=== PATIENT | female | born 1990 | race Caucasian/White ===

== ENCOUNTER 2018-05-06 12:15 | Emergency (ER) | payer SELFPAY ==
--- NOTE | 2018-05-06 14:19 | ER ---
Nurse's Notes [facility] Name: Latoya Bryson Age: 28 yrs Sex: Female : 1990 Arrival Date: 05/06/2018 Time: 12:21 Bed 24 Private MD: None, None Diagnosis: Pneumonia, unspecified organism;Urinary tract infection, site not specified;Otitis media, unspecified, right ear Presentation: 05/06 12:21 Presenting complaint: Patient states: Symptoms began last , today they are sg worsening, sore throat, patches noted per pt on back of throat, bilateral ear pain with drainage, pt reports fever on and off for 2 days now, N/V, reports dizziness. Transition of care: patient was not received from another setting of care. Onset of symptoms was May 06, 2018. Risk Assessment: Do you want to hurt yourself or someone else? Patient reports no desire to harm self or others. Initial Sepsis Screen: Does the patient meet any 2 criteria? No. Patient's initial sepsis screen is negative. Does the patient have a suspected source of infection? No. Patient's initial sepsis screen is negative. Care prior to arrival: None. 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 - Social history:: Smoking status: Patient uses tobacco products, denies chronic smoking, but will smoke occasionally. - Ebola Screening: : Patient negative for fever greater than or equal to 101.5 degrees Fahrenheit, and additional compatible Ebola Virus Disease symptoms Patient denies exposure to infectious person Patient denies travel to an Ebola-affected area in the 21 days before illness onset No symptoms or risks identified at this time. Screenin:23 Abuse screen: Denies threats or abuse. Denies injuries from another. Nutritional ed1 screening: No deficits noted. Tuberculosis screening: No symptoms or risk factors identified. Fall Risk None identified. Assessment: 14:23 General: Appears uncomfortable, Behavior is calm, cooperative. Pain: Complains of pain ed1 in throat and chest Pain does not radiate. Pain currently is 7 out of 10 on a pain scale. Quality of pain is described as burning, aching, Pain began 2-3 days ago. Is continuous. Neuro: Level of Consciousness is awake, alert, obeys commands, Oriented to person, place, time, situation. Cardiovascular: Heart tones S1 S2 present. Respiratory: Reports cough that is non-productive, persistent Airway is patent Respiratory effort is even, unlabored, Respiratory pattern is regular, symmetrical, Breath sounds with wheezes bilaterally. GI: No signs and/or symptoms were reported involving the gastrointestinal system. : No signs and/or symptoms were reported regarding the genitourinary system. EENT: Throat is reddened has enlarged tonsils bilaterally with gag reflex present. Derm: Skin is pink, warm \T\ dry. Musculoskeletal: Circulation, motion, and sensation intact. Vital Signs: 12:23 BP 135 / 98; Pulse 105; Resp 18; Pulse Ox 100% on R/A; Weight 90.72 kg; Height 5 ft. 7 sg in. (170.18 cm); Pain 7/10; 15:04 BP 136 / 71; Pulse 102; Resp 20; Pulse Ox 99% on R/A; mb3 12:23 Body Mass Index 31.32 (90.72 kg, 170.18 cm) sg ED Course: 12:21 Patient arrived in ED. sb2 12:21 None, None is Private Physician. sb2 12:23 Triage completed. sg 12:24 Arm band placed on. sg 12:38 Linn Haines [facility]C [facility]. snw 12:38 Alex Velasquez MD is Attending Physician. snw 13:56 Chest Pa And Lat (2 Views) XRAY In Process Unspecified. EDMS 14:02 Jayne Ortega LVN is Primary Nurse. ed1 14:23 Patient has correct armband on for positive identification. Bed in low position. Call ed1 light in reach. 15:05 No provider procedures requiring assistance completed. Patient did not have IV access mb3 during this emergency room visit. Administered Medications: 14:25 Drug: Albuterol 2.5 mg Route: Inhalation; ed1 14:25 Drug: Decadron - Dexamethasone 10 mg Route: IVP; Site: Other; ed1 15:04 Follow up: Response: No adverse reaction mb3 14:25 Drug: Tussionex Pennkinetic ER 5 ml Route: PO; ed1 15:04 Follow up: Response: No adverse reaction mb3 14:25 Drug: Zithromax 500 mg Route: PO; ed1 15:03 Follow up: Response: No adverse reaction mb3 14:45 Drug: Albuterol 2.5 mg Route: Inhalation; ed1 14:50 Drug: Albuterol 2.5 mg Route: Inhalation; ed1 15:04 Follow up: Response: No adverse reaction ed1 Outcome: 14:18 Discharge ordered by . delilah 15:05 Discharged to home ambulatory, with family. mb3 15:05 Condition: stable 15:05 Discharge instructions given to patient, family, Instructed on discharge instructions, follow up and referral plans. medication usage, Demonstrated understanding of instructions, follow-up care, medications, Prescriptions given X 3. 15:05 Patient left the ED. mb3 Addendum: 05/09/2018 08:59 Addendum: Culture Results: Positive urine culture. No further action required. Bacteria i w sensitive to prescribed antibiotic. Signatures: Dispatcher [employer] EDMS Rocky Perry, RN RN Linn Dobbins, SLEEPING BAG FILLER-C SLEEPING BAG FILLER-Csnw Lalitha Sy, RN Jayne Jauregui LVN EXEC. CREATIVE DIRECTOR ed1 Irma Romeo sb2 Meir Saenz RN RN mb3
[2018-05-06] MEDS ORDERED: AZITHROMYCIN 250 MG TAB ONE (14:20)
[2018-05-06] MEDS ORDERED: HYDROCODONE/CHLORPHEN 5 ML/OSYR ONE (14:20)
[2018-05-06] MEDS ORDERED: DEXAMETHASONE 10 MG/ML VIAL ONE (14:20)
[2018-05-06] MEDS ORDERED: ALBUTEROL 2.5 MG/3 ML NEB SOL ONE (14:20)
--- NOTE | 2018-05-06 14:20 | EDPHYS ---
Physician Documentation [facility] Name: Latoya Bryson Age: 28 yrs Sex: Female : 1990 Arrival Date: 05/06/2018 Time: 12:21 Bed 24 Private MD: None, None ED Physician Alex Velasquez HPI: 05/06 13:53 This 28 yrs old Female presents to ER via Ambulatory with complaints of snw Cough, Flu Symptoms. 13:53 The patient or guardian reports airway noise, cough, described as moderate, flu snw symptoms, hoarse voice. Onset: The symptoms/episode began/occurred suddenly, 3 day(s) ago, and became persistent. Severity of symptoms: At their worst the symptoms were moderate. Associated signs and symptoms: Pertinent positives: chest pain, fever, nausea, sore throat. The patient has not experienced similar symptoms in the past. It is unknown whether or not the patient has recently seen a physician. usually gets strep twice/year. 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 - Social history:: Smoking status: Patient uses tobacco products, denies chronic smoking, but will smoke occasionally. - Ebola Screening: : Patient negative for fever greater than or equal to 101.5 degrees Fahrenheit, and additional compatible Ebola Virus Disease symptoms Patient denies exposure to infectious person Patient denies travel to an Ebola-affected area in the 21 days before illness onset No symptoms or risks identified at this time. ROS: 13:51 Eyes: Negative for injury, pain, redness, and discharge, Neck: Negative for injury, snw pain, and swelling, Cardiovascular: Negative for chest pain, palpitations, and edema, Abdomen/GI: Negative for abdominal pain, nausea, vomiting, diarrhea, and constipation, Back: Negative for injury and pain, : Negative for injury, bleeding, discharge, and swelling, MS/Extremity: Negative for injury and deformity, Skin: Negative for injury, rash, and discoloration, Neuro: Negative for headache, weakness, numbness, tingling, and seizure. 13:51 Constitutional: Positive for body aches, malaise, poor PO intake. 13:51 ENT: Positive for ear pain, sore throat. 13:51 Respiratory: Positive for cough, pleurisy, of the anterior chest. Exam: 13:49 Head/Face: Normocephalic, atraumatic. Eyes: Pupils equal round and reactive to light, snw extra-ocular motions intact. Lids and lashes normal. Conjunctiva and sclera are non-icteric and not injected. Cornea within normal limits. Periorbital areas with no swelling, redness, or edema. Chest/axilla: Normal chest wall appearance and motion. Nontender with no deformity. No lesions are appreciated. Abdomen/GI: Soft, non-tender, with normal bowel sounds. No distension or tympany. No guarding or rebound. No evidence of tenderness throughout. Back: No spinal tenderness. No costovertebral tenderness. Full range of motion. Skin: Warm, dry with normal turgor. Normal color with no rashes, no lesions, and no evidence of cellulitis. MS/ Extremity: Pulses equal, no cyanosis. Neurovascular intact. Full, normal range of motion. Neuro: Awake and alert, GCS 15, oriented to person, place, time, and situation. Cranial nerves II-XII grossly intact. Motor strength 5/5 in all extremities. Sensory grossly intact. Cerebellar exam normal. Normal gait. Psych: Awake, alert, with orientation to person, place and time. Behavior, mood, and affect are within normal limits. 13:49 Constitutional: The patient appears alert, awake. 13:49 ENT: Ear canal(s): are normal, TM's: bulging, on the right, erythema, that is marked, on the right, Examination of the other ear shows no obvious abnormality, Nose: is normal, Mouth: is normal, Posterior pharynx: is normal, Voice: is normal. 13:49 Neck: C-spine: appears grossly normal, Thyroid: appears normal, Trachea: is midline with no obvious abnormalities, ROM/movement: is normal, Lymph nodes: lymphadenopathy is appreciated, anterior cervical nodes. 13:49 Cardiovascular: Rate: tachycardic, Rhythm: regular. 13:49 Respiratory: the patient does not display signs of respiratory distress, Respirations: no acute changes, Breath sounds: wheezing: expiratory that is moderate, is scattered, bronchitic cough. Vital Signs: 12:23 BP 135 / 98; Pulse 105; Resp 18; Pulse Ox 100% on R/A; Weight 90.72 kg; Height 5 ft. 7 sg in. (170.18 cm); Pain 7/10; 15:04 BP 136 / 71; Pulse 102; Resp 20; Pulse Ox 99% on R/A; mb3 12:23 Body Mass Index 31.32 (90.72 kg, 170.18 cm) sg MDM: 13:27 Patient medically screened. snw 16:53 Data reviewed: vital signs, nurses notes. Data interpreted: Pulse oximetry: on room air snw is 99 %. Interpretation: normal. Counseling: I had a detailed discussion with the patient and/or guardian regarding: the historical points, exam findings, and any diagnostic results supporting the discharge/admit diagnosis, the presence of at least one elevated blood pressure reading (>120/80) during this emergency department visit, lab results, radiology results, the need for outpatient follow up, to return to the emergency department if symptoms worsen or persist or if there are any questions or concerns that arise at home. Special discussion: I have referred the patient to see his PCP for further evaluation of high blood pressure. Based on the history and exam findings, there is no indication for further emergent testing or inpatient evaluation. I discussed with the patient/guardian the need to see the primary care provider for further evaluation of the symptoms. 05/06 13:27 Order name: Strep; Complete Time: 14:33 snw 05/06 13:27 Order name: Urine Culture snw 05/06 13:27 Order name: Urine Microscopic Only; Complete Time: 14:33 snw 05/06 14:19 Order name: Urine Dipstick--Ancillary (enter results); Complete Time: 14:27 em1 05/06 14:19 Order name: Urine --Ancillary (enter results); Complete Time: 14:27 em1 05/06 14:30 Order name: Throat Culture [facility] 05/06 13:27 Order name: Urine Test (obtain specimen); Complete Time: 14:14 snw 05/06 13:27 Order name: Urine Dipstick-Ancillary (obtain specimen); Complete Time: 14:14 snw 05/06 13:38 Order name: Chest Pa And Lat (2 Views) XRAY; Complete Time: 14:33 snw Administered Medications: 14:25 Drug: Albuterol 2.5 mg Route: Inhalation; ed1 14:25 Drug: Decadron - Dexamethasone 10 mg Route: IVP; Site: Other; ed1 15:04 Follow up: Response: No adverse reaction mb3 14:25 Drug: Tussionex Pennkinetic ER 5 ml Route: PO; ed1 15:04 Follow up: Response: No adverse reaction mb3 14:25 Drug: Zithromax 500 mg Route: PO; ed1 15:03 Follow up: Response: No adverse reaction mb3 14:45 Drug: Albuterol 2.5 mg Route: Inhalation; ed1 14:50 Drug: Albuterol 2.5 mg Route: Inhalation; ed1 15:04 Follow up: Response: No adverse reaction ed1 Disposition: 15:06 Co-signature as Attending Physician, Alex Velasquez MD. rn Disposition: 05/06/18 14:18 Discharged to Home. Impression: Pneumonia, unspecified organism, Urinary tract infection, site not specified, Otitis media, unspecified, right ear. - Condition is Stable. - Discharge Instructions: Otitis Media With Effusion, Pneumonia, Adult, Urinary Tract Infection, Hypertension, Rxnj-cx-Idor, Rehydration, Adult. - Prescriptions for Levaquin 500 mg Oral Tablet - take 1 tablet by ORAL route once daily for 10 days; 10 tablet. Tylenol- Codeine #3 300-30 mg Oral Tablet - take 2 tablets by ORAL route every 6 hours As needed; 20 tablet. Albuterol Sulfate 90 mcg/actuation - inhale 1-2 puff by INHALATION route every 4-6 hours; 1 Inhaler. - Work release form, Medication Reconciliation Form, Thank You Letter, Antibiotic Education, Prescription Opioid Use form. - Follow up: Private Physician; When: 2 - 3 days; Reason: Recheck today's complaints, Continuance of care, Re-evaluation by your physician. Follow up: Emergency Department; When: As needed; Reason: Worsening of condition. Signatures: Dispatcher [employer] EDMS Rocky Perry RN RN sg Linn Haines, JUICE BAR TEAM MEMBER-C JUICE BAR TEAM MEMBER-Csnw Alex Velasquez MD MD rn Jayne Ortega, SURVEY ASSOCIATE SURVEY ASSOCIATE ed1 Meir Saenz, RN RN mb3 Corrections: (The following items were deleted from the chart) 15:05 14:18 05/06/2018 14:18 Discharged to Home. Impression: Pneumonia, unspecified organism; mb3 Urinary tract infection, site not specified; Otitis media, unspecified, right ear. Condition is Stable. Forms are Medication Reconciliation Form, Thank You Letter, Antibiotic Education, Prescription Opioid Use. Follow up: Private Physician; When: 2 - 3 days; Reason: Recheck today's complaints, Continuance of care, Re-evaluation by your physician. Follow up: Emergency Department; When: As needed; Reason: Worsening of condition. snw
[2018-05-06 14:25] LABS: Urine Blood NEGATIVE (NEG); Urine Glucose NEGATIVE (NEG); Urine Protein NEGATIVE (NEG)
[2018-05-06 14:30] LABS: Urine Bacteria >50 /HPF (<20); Urine Culture Reflex Order NOT NEEDED; Urine RBC NONE SEEN /HPF (NONE SEEN)
--- NOTE | 2018-05-06 14:32 | RAD REPORT ---
EXAM DESCRIPTION: RAD - Chest Pa And Lat (2 Views) - 05/06/2018 1:58 pm CLINICAL HISTORY: Cough, flu-like symptoms COMPARISON: October 2013 TECHNIQUE: PA and lateral views of the chest were obtained. FINDINGS: The lungs are underinflated. No failure or volume overload. Perihilar markings are mildly prominent, increased slightly over prior study. On the lateral view there is atelectasis or minimal i nfiltrate in the anterior left lower lobe abutting the fissure. Heart size is normal and central va sculature is within normal limits. No pleural effusion or pneumothorax seen. No acute bony finding noted. No aortic abnormality. IMPRESSION: Small pneumonia versus atelectasis in the anterior base left lower lobe.
== END 2018-05-06 15:05 | disposition home or self-care (01) ==
LOC: ER 12:15
DX: J18.9 Pneumonia, unspecified organism (principal); N39.0 Urinary tract infection, site not specified; H66.91 Otitis media, unspecified, right ear; F17.200 Nicotine dependence, unspecified, uncomplicated; Z88.0 Allergy status to penicillin
CPT/HCPCS: 71046; 81003; 81015; 81025; 87070; 87077; 87081; 87086; 87088; 87186; 96374; 99284; J1100

== ENCOUNTER 2019-09-12 09:36 | Emergency (ER) | payer SELFPAY ==
--- OUTSIDE RECORDS SUMMARY | 2019-09-12 09:38 | XMS REPORT | Continuity of Care Document ---
:1990 Author Organization [facility] Address [address] [place] [address] Phone Unavailable Care Team Providers Name Role Phone PHYSICIAN, NO Primary Care Physician Unavailable Insurance Providers Guarantor Margo Bryson Address [address] [place] [phone] Email NONE Payer Self Pay Insurance Subscriber's Name Margo Bryson Relationship Self / Same As Patient Group Number NA Group Name NA Advance Directives Directive Response Recorded Date/Time Name of Surrogate/Decision Maker NA 04/26/19 12:02pm Patient/Family Given Education Material R/T Y - KR...04/26/19 04/26/19 12: 02pm Directives? Chief Complaint and Reason for Visit Chief Complaint Skin Rash/Abscess/Wound Reason for Visit Cellulitis Problems Active ProblemsNo active problem information available. Past Problems Medical Problem Onset Date Status Cellulitis Unknown Acute Medications No medication information available. Social History Smoking Status Start Date Stop Date Current every day smoker Hospital Discharge Instructions No hospital discharge instruction information available. Plan of Care Discharge Date 04/26/19 1:04pm Instructions/Education Provided Cellulitis, Adult, Qcbq-or-Oxen Forms Provided Portal Welcome Letter Prescriptions See Medication Section Referrals NO PHYSICIAN Additional Instructions/Education rx clindamycin 300, rec reeval by pvt md or er in 3d Functional Status No functional status information available. Allergies, Adverse Reactions, Alerts Allergen Type Severity Reaction Status Last Updated Penicillin G ([id number]) Allergy Unknown Active 04/26/19 Immunizations No immunization information available. Vital Signs Acute Vital Signs Vital Response Date/Time Blood Pressure 118/82 mm Hg 04/26/2019 1:04pm Pulse Pulse Rate (adult) 98 beats per minute (60 - 100) 04/26/2019 1:04pm Respiratory Rate 18 breaths per minute (10 - 24) 04/26/2019 1:04pm Temperature Source Oral 04/26/2019 1:04pm Height 5 ft 7 in 04/26/2019 11:25am Weight 200 lb 04/26/2019 11:25am Body Mass Index 31.3 kg/m^2 04/26/2019 11:25am Results No relevant diagnostic test, laboratory data and/or discharge summary information available. Procedures No procedure information available. Encounters Encounter Location Arrival/Admit Date Discharge/Depart Date Attending Provider Departed [place] 04/26/19 11:21am 04/26/19 1:04pm [facility] GILBERTO Shah MD [facility] Recent Diagnosis
--- NOTE | 2019-09-12 11:35 | ER ---
Nurse's Notes [facility] Name: Latoya Bryson Age: 29 yrs Sex: Female : 1990 Arrival Date: 09/12/2019 Time: 09:38 Bed 10 Private MD: Diagnosis: Acute upper respiratory infection, unspecified Presentation: 09/12 09:50 Presenting complaint: Patient states: cough since Thursday, chest congestion, + phlegm, iw +chills. Transition of care: patient was not received from another setting of care. Onset of symptoms was September 09, 2019. Risk Assessment: Do you want to hurt yourself or someone else? Patient reports no desire to harm self or others. Initial Sepsis Screen: Does the patient meet any 2 criteria? No. Patient's initial sepsis screen is negative. Does the patient have a suspected source of infection? No. Patient's initial sepsis screen is negative. Care prior to arrival: None. 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 - Social history:: Smoking status: Patient uses tobacco products, smokes one-half pack cigarettes per day. - Ebola Screening: : Patient negative for fever greater than or equal to 101.5 degrees Fahrenheit, and additional compatible Ebola Virus Disease symptoms Patient denies exposure to infectious person Patient denies travel to an Ebola-affected area in the 21 days before illness onset No symptoms or risks identified at this time. Screenin:01 Abuse screen: Denies threats or abuse. Denies injuries from another. Nutritional iw screening: No deficits noted. Tuberculosis screening: No symptoms or risk factors identified. Fall Risk None identified. Assessment: 10:00 General: Appears in no apparent distress. Behavior is calm, cooperative. Pain: iw Complains of pain in chest. Neuro: Level of Consciousness is awake, alert, obeys commands, Oriented to person, place, time, situation, Moves all extremities. Full function. Cardiovascular: Patient's skin is warm and dry. Respiratory: Reports cough that is productive, Airway is patent Respiratory effort is even, unlabored, Respiratory pattern is regular, symmetrical. Derm: Skin is intact, is healthy with good turgor. Musculoskeletal: Range of motion: intact in all extremities. 11:01 Reassessment: Patient appears in no apparent distress at this time. Patient and/or iw family updated on plan of care and expected duration. Pain level reassessed. Patient is alert, oriented x 3, equal unlabored respirations, skin warm/dry/pink. Vital Signs: 09:52 BP 130 / 92; Pulse 89; Resp 16; Temp 98.6; Pulse Ox 97% on R/A; Weight 88 kg; Height 5 iw ft. 7 in. (170.18 cm); Pain 6/10; 09:52 Body Mass Index 30.38 (88.00 kg, 170.18 cm) iw ED Course: 09:38 Patient arrived in ED. rg4 09:46 Libby Dc FNP-C is [facility]. kb 09:46 Alex Velasquez MD is Attending Physician. kb 09:51 Triage completed. iw 09:52 Arm band placed on. iw 10:00 Patient has correct armband on for positive identification. iw 10:05 Lalitha Sy, RN is Primary Nurse. iw 10:14 Flu and/or RSV swab sent to lab. iw 11:34 No provider procedures requiring assistance completed. Patient did not have IV access iw during this emergency room visit. Administered Medications: No medications were administered Outcome: 11:35 Discharge ordered by MD. kb 11:38 Discharged to home ambulatory. iw 11:38 Condition: good 11:38 Discharge instructions given to patient, Instructed on discharge instructions, follow up and referral plans. Demonstrated understanding of instructions, follow-up care. 11:39 Patient left the ED. iw Signatures: Libby Dc FNP-C FNP-Lalitha Raymond, RN RN Mia Stewart rg4
--- NOTE | 2019-09-12 11:35 | EDPHYS ---
Physician Documentation [facility] Name: Latoya Bryson Age: 29 yrs Sex: Female : 1990 Arrival Date: 09/12/2019 Time: 09:38 Bed 10 Private MD: ED Physician Alex Velasquez HPI: 09/12 11:26 This 29 yrs old Female presents to ER via Ambulatory with complaints of Cough.kb 11:26 The patient or guardian reports cough, that is intermittent, described as mild, with no kb sputum, flu symptoms, arthralgias, low-grade fever. Onset: The symptoms/episode began/occurred 4 day(s) ago. Severity of symptoms: At their worst the symptoms were moderate, in the emergency department the symptoms are unchanged. Modifying factors: The symptoms are alleviated by nothing, the symptoms are aggravated by nothing. Associated signs and symptoms: Pertinent positives: rhinorrhea, sore throat. The patient has not experienced similar symptoms in the past. The patient has not recently seen a physician. 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 - Social history:: Smoking status: Patient uses tobacco products, smokes one-half pack cigarettes per day. - Ebola Screening: : Patient negative for fever greater than or equal to 101.5 degrees Fahrenheit, and additional compatible Ebola Virus Disease symptoms Patient denies exposure to infectious person Patient denies travel to an Ebola-affected area in the 21 days before illness onset No symptoms or risks identified at this time. ROS: 11:27 Neck: Negative for injury, pain, and swelling, Cardiovascular: Negative for chest pain, kb palpitations, and edema, Abdomen/GI: Negative for abdominal pain, nausea, vomiting, diarrhea, and constipation, Back: Negative for injury and pain, : Negative for injury, bleeding, discharge, and swelling, MS/Extremity: Negative for injury and deformity, Skin: Negative for injury, rash, and discoloration, Neuro: Negative for headache, weakness, numbness, tingling, and seizure. 11:27 Constitutional: Positive for body aches, chills, malaise. 11:27 ENT: Positive for rhinorrhea, sore throat. 11:27 Respiratory: Positive for cough, Negative for dyspnea on exertion, hemoptysis, orthopnea, pleurisy, shortness of breath, sputum production, wheezing. Exam: 11:27 Constitutional: This is a well developed, well nourished patient who is awake, alert, kb and in no acute distress. Head/Face: Normocephalic, atraumatic. ENT: Nares patent. No nasal discharge, no septal abnormalities noted. Tympanic membranes are normal and external auditory canals are clear. Oropharynx with no redness, swelling, or masses, exudates, or evidence of obstruction, uvula midline. Mucous membranes moist. Neck: Trachea midline, no thyromegaly or masses palpated, and no cervical lymphadenopathy. Supple, full range of motion without nuchal rigidity, or vertebral point tenderness. No Meningismus. Chest/axilla: Normal chest wall appearance and motion. Nontender with no deformity. No lesions are appreciated. Cardiovascular: Regular rate and rhythm with a normal S1 and S2. No gallops, murmurs, or rubs. Normal PMI, no JVD. No pulse deficits. Respiratory: Lungs have equal breath sounds bilaterally, clear to auscultation and percussion. No rales, rhonchi or wheezes noted. No increased work of breathing, no retractions or nasal flaring. Abdomen/GI: Soft, non-tender, with normal bowel sounds. No distension or tympany. No guarding or rebound. No evidence of tenderness throughout. Back: No spinal tenderness. No costovertebral tenderness. Full range of motion. Skin: Warm, dry with normal turgor. Normal color with no rashes, no lesions, and no evidence of cellulitis. MS/ Extremity: Pulses equal, no cyanosis. Neurovascular intact. Full, normal range of motion. Neuro: Awake and alert, GCS 15, oriented to person, place, time, and situation. Cranial nerves II-XII grossly intact. Motor strength 5/5 in all extremities. Sensory grossly intact. Cerebellar exam normal. Normal gait. Vital Signs: 09:52 BP 130 / 92; Pulse 89; Resp 16; Temp 98.6; Pulse Ox 97% on R/A; Weight 88 kg; Height 5 iw ft. 7 in. (170.18 cm); Pain 6/10; 09:52 Body Mass Index 30.38 (88.00 kg, 170.18 cm) iw MDM: 09:53 Patient medically screened. kb 11:27 Data reviewed: vital signs, nurses notes. Data interpreted: Pulse oximetry: on room air kb is 97 %. Interpretation: normal. 11:34 Counseling: I had a detailed discussion with the patient and/or guardian regarding: the kb historical points, exam findings, and any diagnostic results supporting the discharge/admit diagnosis, lab results, the need for outpatient follow up, a family practitioner, to return to the emergency department if symptoms worsen or persist or if there are any questions or concerns that arise at home. 09/12 09:56 Order name: Flu; Complete Time: 10:40 kb 09/12 10:44 Order name: Strep; Complete Time: 11:34 kb 09/12 11:38 Order name: Throat Culture EDMS Administered Medications: No medications were administered Disposition: 15:57 Co-signature as Attending Physician, Alex Velasquez MD. rn Disposition: 09/12/19 11:35 Discharged to Home. Impression: Acute upper respiratory infection, unspecified. - Condition is Stable. - Discharge Instructions: Upper Respiratory Infection, Adult, [id number]-[id number], Viral Respiratory Infection, Tspg-Wm-Ocut. - Work release form, Medication Reconciliation Form, Thank You Letter, Antibiotic Education, Prescription Opioid Use form. - Follow up: Emergency Department; When: As needed; Reason: Worsening of condition. Follow up: Private Physician; When: 2 - 3 days; Reason: Recheck today's complaints, Continuance of care, Re-evaluation by your physician. Signatures: Dispatcher [employer] EDLibby Bliss, MARY ASTUDILLO-Lalitha Raymond RN Alex Sinclair MD MD cv rn: (The following items were deleted from the chart) 11:39 11:35 09/12/2019 11:35 Discharged to Home. Impression: Acute upper respiratory iw infection, unspecified. Condition is Stable. Forms are Medication Reconciliation Form, Thank You Letter, Antibiotic Education, Prescription Opioid Use. Follow up: Emergency Department; When: As needed; Reason: Worsening of condition. Follow up: Private Physician; When: 2 - 3 days; Reason: Recheck today's complaints, Continuance of care, Re-evaluation by your physician. kb
[2019-09-12 11:45] VITALS: BP 130/92; TEMP 98.6; O2SAT 97
== END 2019-09-12 11:39 | disposition home or self-care (01) ==
LOC: ER 09:36
DX: J06.9 Acute upper respiratory infection, unspecified (principal); Z88.0 Allergy status to penicillin; F17.210 Nicotine dependence, cigarettes, uncomplicated
CPT/HCPCS: 87070; 87081; 87804; 99283

== ENCOUNTER 2021-09-23 18:24 | Emergency (ER) | payer SELFPAY ==
[2021-09-23 19:50] LABS: Absolute Lymphocytes (CBC) 2.7 K/uL (0.7-4.9); Basophils % 0.6 % (0-1.3); Lymphocytes % 26.4 % (15.3-44.8); MPV 8.3 fL (7.6-11.3); RBC Red Blood Cell Count 4.09 M/uL (3.86-4.86)
[2021-09-23 20:26] LABS: ALT/SGPT 33 U/L (12-78); AST/SGOT 15 U/L (15-37); Albumin 3.6 g/dL (3.4-5.0); Alkaline Phosphatase 103 U/L (45-117); BUN Blood Urea Nitrogen 16 mg/dL (7-18); Bicarbonate 29 mmol/L (21-32); Bilirubin Direct < 0.1 mg/dL (0-0.2); Bilirubin Total 0.3 mg/dL (0.2-1.0); Glucose Level 98 mg/dL (74-106); Lipase 106 U/L (73-393); Potassium 3.9 mmol/L (3.5-5.1); Protein, Total 7.4 g/dL (6.4-8.2); Sodium Level 139 mmol/L (136-145)
[2021-09-23 21:38] LABS: Urine Blood Negative (Negative); Urine Glucose Negative (Negative); Urine Protein Negative (Negative); Urine Specific Gravity >=1.030 (1.005-1.030); Urine pH 6.5 (5.0-7.0)
[2021-09-23] MEDS ORDERED: ONDANSETRON 4 MG/2 ML VIAL ONE (23:07)
--- NOTE | 2021-09-23 23:12 | EDPHYS ---
Physician Documentation [facility] Name: Latoya Bryson Age: 31 yrs Sex: Female : 1990 Arrival Date: 09/23/2021 Time: 18:26 Bed 11 Private MD: GABRIELLE Physician Rex Simmons HPI: 09/23 22:25 This 31 yrs old Female presents to ER via Ambulatory with complaints of Upper Abd Pain, jr8 Nausea/Vomiting. 22:25 This is a 31-year-old female that presented to the emergency room with a history of jr8 cholecystectomy complaining of upper abdominal pain for the past couple weeks with associated nausea and vomiting. Patient denies any diarrhea, fevers or any other symptoms at this time. Patient stated that she had her cholecystectomy about 10 years ago and has been fine since then. Started to have pain which she describes as an intense gnawing feeling in her epigastric region that is unrelenting but often times feels better with the eating.. 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 - Social history:: Smoking status: Patient denies any tobacco usage or history of. Patient uses alcohol, occasionally. Patient/guardian denies using street drugs. ROS: 22:25 Eyes: Negative for injury, pain, redness, and discharge, ENT: Negative for injury, jr8 pain, and discharge, Neck: Negative for injury, pain, and swelling, Cardiovascular: Negative for chest pain, palpitations, and edema, Respiratory: Negative for shortness of breath, cough, wheezing, and pleuritic chest pain, Back: Negative for injury and pain, MS/Extremity: Negative for injury and deformity, Skin: Negative for injury, rash, and discoloration, Neuro: Negative for headache, weakness, numbness, tingling, and seizure. 22:25 Abdomen/GI: Positive for abdominal pain, nausea and vomiting, Negative for diarrhea, abdominal distension, hematemesis, black/tarry stool, rectal pain, rectal bleeding, bowel incontinence, flatulence. Exam: 22:25 Constitutional: This is a well developed, well nourished patient who is awake, alert, jr8 and in no acute distress. Cardiovascular: Regular rate and rhythm with a normal S1 and S2. No gallops, murmurs, or rubs. Normal PMI, no JVD. No pulse deficits. Respiratory: Lungs have equal breath sounds bilaterally, clear to auscultation and percussion. No rales, rhonchi or wheezes noted. No increased work of breathing, no retractions or nasal flaring. Back: No spinal tenderness. No costovertebral tenderness. Full range of motion. Skin: Warm, dry with normal turgor. Normal color with no rashes, no lesions, and no evidence of cellulitis. MS/ Extremity: Pulses equal, no cyanosis. Neurovascular intact. Full, normal range of motion. Neuro: Awake and alert, GCS 15, oriented to person, place, time, and situation. Cranial nerves II-XII grossly intact. Motor strength 5/5 in all extremities. Sensory grossly intact. 22:25 Abdomen/GI: Inspection: abdomen appears normal, Bowel sounds: active, all quadrants, Palpation: soft, in all quadrants, mild abdominal tenderness, in the epigastric area, mass, is not appreciated, rebound tenderness, is not appreciated, voluntary guarding, is not appreciated, involuntary guarding, is not appreciated, no appreciated organomegaly, Indicators: McBurney's point is not tender, Cummins's sign is negative, Rovsing's sign is negative, Liver: tenderness, is not appreciated. Vital Signs: 19:35 BP 140 / 105; Pulse 84; Resp 18; Temp 98.1(TE); Pulse Ox 100% on R/A; Weight 94.35 kg; ld1 Height 5 ft. 7 in. (170.18 cm); Pain 5/10; 21:50 BP 163 / 100; Pulse 78; Resp 16; Pulse Ox 100% on R/A; ds4 19:35 Body Mass Index 32.58 (94.35 kg, 170.18 cm) ld1 MDM: 21:29 Patient medically screened. jr8 23:10 Differential diagnosis: gastritis, gastroesophageal reflux disease, Irritable bowel jr8 syndrome, non-specific abd pain, pancreatitis, Peptic Ulcer Disease. Data reviewed: vital signs, nurses notes, lab test result(s), radiologic studies, CT scan. Data interpreted: Pulse oximetry: on room air is 100 %. Interpretation: normal. Counseling: I had a detailed discussion with the patient and/or guardian regarding: the historical points, exam findings, and any diagnostic results supporting the discharge/admit diagnosis, lab results, radiology results, the need for outpatient follow up, a magistrate assistant, to return to the emergency department if symptoms worsen or persist or if there are any questions or concerns that arise at home. Special discussion: Based on the patient's Hx, exam, and Dx evaluation, there is no indication for emergent surgery or inpatient Tx. It is understood by the patient/guardian that if the Sx's persist or worsen they need to return immediately for re-evaluation. 09/23 19:34 Order name: Basic Metabolic Panel; Complete Time: 20:51 ld1 09/23 19:34 Order name: CBC with Diff; Complete Time: 20:51 ld1 09/23 19:34 Order name: Hepatic Function; Complete Time: 20:51 ld1 09/23 19:34 Order name: Lipase; Complete Time: 20:51 ld1 09/23 21:37 Order name: Urine Dipstick-Ancillary; Complete Time: 21:49 EDMS 09/23 21:39 Order name: Urine --Ancillary (enter results); Complete Time: 21:49 cs9 09/23 19:34 Order name: IV Saline Lock; Complete Time: 21:48 ld1 09/23 19:34 Order name: Labs collected and sent; Complete Time: 21:48 ld1 09/23 21:45 Order name: CT Abd/Pelvis - IV Contrast Only jr8 Administered Medications: 23:10 Drug: Zofran (Ondansetron) 4 mg Route: IVP; Site: right antecubital; bb Disposition Summary: 09/23/21 23:11 Discharge Ordered Location: Home jr Condition: Stable jr8 Diagnosis - Upper abdominal pain, unspecified jr8 - Nausea with vomiting, unspecified jr8 Followup: jr8 - With: Bradley Farley MD - When: 2 - 3 days - Reason: Recheck today's complaints, Continuance of care, Re-evaluation by your physician Discharge Instructions: - Discharge Summary Sheet jr8 - Abdominal Pain, Adult jr8 - Nausea and Vomiting, Adult, [id number] jr8 Forms: - Medication Reconciliation Form jr8 - Thank You Letter jr8 - Antibiotic Education jr8 - Prescription Opioid Use jr8 Prescriptions: - omeprazole 40 mg Oral capsule,delayed release(DR/EC) - take 1 capsule by ORAL route once daily before a meal; 30 capsule; Refills: 0, jr8 Product Selection Permitted - Zofran 4 mg Oral Tablet - take 1 tablet by ORAL route every 12 hours As needed; 20 tablet; Refills: 0, jr8 Product Selection Permitted - dicyclomine 20 mg Oral Tablet - take 1 tablet by ORAL route 3 times per day As needed; 20 tablet; Refills: 0, jr8 Product Selection Permitted Addendum: 09/25/2021 09:19 Co-signature as Attending Physician, Rex Simmons MD I agree with the assessment and c ang[place] plan of care. Signatures: Dispatcher [employer] [facility] Rex Simmons MD MD cha Ballard, Brenda, RN RN bb Peter Allred PA PA jr8 Chanel Britt RN RN ld1 Corrections: (The following items were deleted from the chart) 09/23 21:45 20:52 Abdomen Limited+[id number] ordered. [facility]
--- NOTE | 2021-09-23 23:12 | ER ---
Nurse's Notes [facility] Name: Latoya Bryson Age: 31 yrs Sex: Female : 1990 Arrival Date: 09/23/2021 Time: 18:26 Bed 11 Private MD: Diagnosis: Upper abdominal pain, unspecified;Nausea with vomiting, unspecified Presentation: 09/23 19:35 Chief complaint: Patient states: I do not have my gallbladder but I feel like I am ld1 having gallbladder attacks. It has been going on for about 2 weeks, I try to ignore the pain because I can't afford going to the hospital. Last night at 0400 I woke up throwing up, extremely nauseous. RUQ pain 8/. Coronavirus screen: At this time, the client does not indicate any symptoms associated with coronavirus-19. Ebola Screen: No symptoms or risks identified at this time. Initial Sepsis Screen: Does the patient meet any 2 criteria? No. Patient's initial sepsis screen is negative. Does the patient have a suspected source of infection? No. Patient's initial sepsis screen is negative. Risk Assessment: Do you want to hurt yourself or someone else? Patient reports no desire to harm self or others. Onset of symptoms was September 23, 2021. 19:35 Method Of Arrival: Ambulatory ld1 19:35 Acuity: LISA 3 ld1 Triage Assessment: 19:37 General: Appears in no apparent distress. comfortable, Behavior is calm, cooperative, ld1 appropriate for age. Pain: Complains of pain in left upper quadrant Pain does not radiate. Pain currently is 5 out of 10 on a pain scale. at worst was 10 out of 10 on a pain scale. Quality of pain is described as squeezing, Pain began Is intermittent. EENT: No signs and/or symptoms were reported regarding the EENT system. Neuro: Level of Consciousness is awake, alert, obeys commands, Oriented to person, place, time, situation, Appropriate for age. Cardiovascular: Capillary refill < 3 seconds Patient's skin is warm and dry. Respiratory: Airway is patent Respiratory effort is even, unlabored, Respiratory pattern is regular, symmetrical. GI: Abdomen is round non-distended, Reports upper abdominal pain, nausea, vomiting. : No signs and/or symptoms were reported regarding the genitourinary system. Derm: No signs and/or symptoms reported regarding the dermatologic system. Musculoskeletal: No signs and/or symptoms reported regarding the musculoskeletal system. 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 - Social history:: Smoking status: Patient denies any tobacco usage or history of. Patient uses alcohol, occasionally. Patient/guardian denies using street drugs. Screenin:37 Abuse screen: Denies threats or abuse. Nutritional screening: No deficits noted. bb Tuberculosis screening: No symptoms or risk factors identified. Fall Risk None identified. Assessment: 22:37 General: Appears in no apparent distress. uncomfortable, Behavior is calm, cooperative. bb Pain: Complains of pain in abdomen. Neuro: Level of Consciousness is awake, alert, obeys commands, Oriented to person, place, time, situation. Cardiovascular: Capillary refill < 3 seconds Patient's skin is warm and dry. Respiratory: Respiratory effort is even, unlabored, Respiratory pattern is regular. GI: Abdomen is round non-distended, Reports upper abdominal pain, nausea, vomiting. Derm: Skin is pink, warm \T\ dry. Musculoskeletal: Circulation, motion, and sensation intact. Vital Signs: 19:35 BP 140 / 105; Pulse 84; Resp 18; Temp 98.1(TE); Pulse Ox 100% on R/A; Weight 94.35 kg; ld1 Height 5 ft. 7 in. (170.18 cm); Pain 5/10; 21:50 BP 163 / 100; Pulse 78; Resp 16; Pulse Ox 100% on R/A; ds4 19:35 Body Mass Index 32.58 (94.35 kg, 170.18 cm) ld1 ED Course: 18:26 Patient arrived in ED. ds1 19:37 Triage completed. ld1 19:37 Arm band placed on right wrist. ld1 21:28 Peter Allred PA is PHCP. jr8 21:28 Rex Simmons MD is Attending Physician. jr8 22:19 CT Abd/Pelvis - IV Contrast Only In Process Unspecified. EDMS 22:37 Patient has correct armband on for positive identification. Bed in low position. Call bb light in reach. 22:37 IV is patent, is intact. bb 22:37 Inserted 22 g R AC inserted by fiber optic technician during triage. bb 23:11 Bradley Farley MD is Referral Physician. jr8 23:38 No provider procedures requiring assistance completed. IV discontinued, intact, ld1 bleeding controlled, No redness/swelling at site. Administered Medications: 23:10 Drug: Zofran (Ondansetron) 4 mg Route: IVP; Site: right antecubital; bb Outcome: 23:11 Discharge ordered by . jr8 23:39 Discharged to home ambulatory. ld1 23:39 Condition: stable 23:39 Discharge instructions given to patient, Instructed on discharge instructions, follow up and referral plans. medication usage, Demonstrated understanding of instructions, follow-up care, medications, Prescriptions given X 3. 23:39 Patient left the ED. ld1 Signatures: Dispatcher [employer] [facility] HarrellDaily miranda ds1 Adelaida Gar, RN RN Peter Khanna PA PA jr8 Petros Ruiz ds4 Chanel Britt, RN RN ld1
[2021-09-23 23:44] VITALS: TEMP 98.1; O2SAT 100
[2021-09-23 23:46] VITALS: BP 163/100
--- NOTE | 2021-09-24 10:48 | RAD REPORT ---
EXAM DESCRIPTION: CT - Abdomen Pelvis W Contrast - 09/24/2021 6:15 am CLINICAL HISTORY: ABD PAIN COMPARISON: None. 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 FINDINGS: Lower lungs are clear. Abdomen: The liver is normal in appearance. There is no biliary dilatation. Cholecystectomy was perfo rmed. The pancreas and spleen are normal in appearance. The adrenal glands and kidneys are unremarkab le. Abdominal aorta is normal in course and caliber without aneurysm. There is no free air. There is no r etroperitoneal adenopathy. There is a small fat-containing periumbilical abdominal wall hernia. Pelvis: There is no bowel obstruction. Urinary bladder is unremarkable. There is small amount of free pelvic fluid. Appendix is normal. Uterus is normal in size. Skeleton: There are no acute osseous findings. No suspicious bony lesions. IMPRESSION: No acute inflammatory process. No renal or ureteral calculi. Electronically signed by: Brett Read MD 09/23/2021 10:53 PM COORDINATOR HOTELS Due to temporary technical issues with the PACS/Fluency reporting system, reports are being signed by the in house radiologists without review as a courtesy to insure prompt reporting. The interpreting radiologist is fully responsible for the content of the report.
== END 2021-09-23 23:39 | disposition home or self-care (01) ==
LOC: ER 18:24
DX: R11.2 Nausea with vomiting, unspecified (principal); Z88.5 Allergy status to narcotic agent
CPT/HCPCS: 36415; 74177; 80048; 80076; 81003; 81025; 83690; 85025; 96374; 99283; J2405; Q9967